=== PATIENT | female | born 2000 | race Hispanic/Latino ===

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

== ENCOUNTER 2021-01-02 18:04 | Emergency (ER) | payer BC, OTHER ==
--- OUTSIDE RECORDS SUMMARY | 2021-01-02 18:07 | XMS REPORT | Continuity of Care Document ---
:2000 Author Organization [facility] t Address [address] [place] [address] Care Team Providers Name Role Phone Marsha Solomon MD Attending Clinician Lab, Fam Pob I Attending Clinician Unavailable Cyndi Castelan Attending Clinician Shaun FLORES, S Attending Clinician Jaswant REYES, F Attending Clinician Doctor Unassigned, Name Attending Clinician Unavailable Problems This patient has no known problems. Allergies, Adverse Reactions, Alerts This patient has no known allergies or adverse reactions. Medications This patient has no known medications. Procedures This patient has no known procedures. Encounters Start End Encounter Admission Attending Care Care Encounter Source Date/Time Date/Time Type Type Clinicians Facility Department ID 2020-03-05 2020-03-05 Telemedici Marsha Solomon [facility] [id number] 08:20:04 08:35:04 ne Visit [facility] [id number] [place] [id number] Professio [phone] nal [address] 2020-02-27 2020-02-27 Telephone Lab, [facility] [id number] 00:00:00 00:00:00 Fam Pob I Health [id number] [place] [id number] Professio [phone] nal [facility] Office Building One 2020-02-25 2020-02-25 Emergency Patricia Rosales [facility] [id number] 18:17:09 21:33:00 Lacy Dunn Chanell [place] [id number] [place] [id number] [place] [id number] [id number] 2019-12-03 2019-12-03 Telemedici Marsha Solomon [facility] [id number] 08:16:16 08:46:16 ne Visit [place] [id number] [place] [id number] Professio [phone] [address] 2019-10-04 2019-10-04 Emergency Jaswant [facility] [id number] 12:12:38 14:29:00 [place] [id number] [place] [id number] [place] [id number] [id number] 2019-10-04 2019-10-04 Orders Doctor BARBARA [id number] 00:00:00 00:00:00 Only Unassigned, JESS [id number] [place] [id number] [phone] [id number] Results This patient has no known results.
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
[2021-01-02 19:15] VITALS: TEMP 98.2; O2SAT 100
[2021-01-02 19:16] VITALS: BP 120/89
[2021-01-02] MEDS ORDERED: HYDROCODONE/APAP 7.5/325 MG TAB ONE (19:22)
--- NOTE | 2021-01-02 19:25 | RAD REPORT ---
EXAM DESCRIPTION: Valery Single View01/02/2021 6:52 pm CLINICAL HISTORY: Chest pain COMPARISON: 2018 FINDINGS: The lungs appear clear of acute infiltrate. The heart is normal size IMPRESSION: No acute abnormalities displayed
== END 2021-01-02 19:09 | disposition home or self-care (01) ==
LOC: ER 18:04
DX: M54.2 Cervicalgia (principal); R51.9 Headache, unspecified; V43.52XA Car driver injured in collision with other type car in traffic accident, initial encounter
CPT/HCPCS: 70450; 71045; 72125; 99284

== ENCOUNTER 2022-03-02 12:51 | Emergency (ER) | payer BC, OTHER, SELFPAY ==
--- OUTSIDE RECORDS SUMMARY | 2022-03-02 13:45 | XMS REPORT | Continuity of Care Document ---
:[address] [facility] t Address [address] [place] [address] [place] [id number] Care Team Providers Name Role Phone YASMANY Primary Care Physician Unavailable TANYA Attending Clinician Unavailable BRIANA SOTO Attending Clinician Unavailable Tanya HENSLEY Attending Clinician Briana Soto MD Attending Clinician Nurse, Women's [facility] Attending Clinician Unavailable Doctor Unassigned, Name Attending Clinician Unavailable YASMANY Attending Clinician Unavailable Lab, Fam Pob I Attending Clinician Unavailable Chanell THOMASON Attending Clinician Unavailable Cyndi Castelan Attending Clinician Chanell Thomason MD Attending Clinician Jaswant COMPOSITE WORKER, F Attending Clinician Chanell THOMASON Admitting Clinician Unavailable Payers Payer Name Policy Type Policy Number Effective Date Expiration Date S moe L [employer] CLAIMS [id number] 2021 00:00:00 BCBS [facility] [id number] 2019 00:00:00 Problems Condition Condition Condition Status Onset Resolution Last Treating Co mments Source Name Details Category Date Date Treatment Clinician Date Obesity Obesity Disease Active Univers (BMI (BMI 7-21 ity of 30-39.9) 30-39.9) 00:00: [place] 00 Medical Branch Encounter Encounter Disease Active Uni vers for for 03-05 ity of control control 00:00: [place] pills pills 00 Medical maintenanc maintenanc Br anch e e No known No known Disease Unive rs active active ity of problems problems [facility] Allergies, Adverse Reactions, Alerts Allergy Allergy Status Severity Reaction(s) Onset Inactive Treating Comm ents Source Name Type Date Date Clinician NO KNOWN Drug Active Univers ALLERGIE Class ity of S [facility] Social History Social Habit Start Date Stop Date Quantity Comments Source Exposure to Not sure [facility] SARS-CoV-2 [facility] (event) [place] Tobacco use and 2021-04-08 2021-04-08 Never used Universit y of exposure 00:00:00 00:00:00 [facility] Alcohol intake 2021-04-08 2021-04-08 Current drinker Unive rsity of 00:00:00 00:00:00 of alcohol [facility] (finding) [place] Alcohol Comment 2021-03-25 2021-03-25 social Universit y of 00:00:00 00:00:00 [facility] Sex Assigned At 2000 2000 Universit y of 00:00:00 00:00:00 [facility] Smoking Status Start Date Stop Date Source Never smoker [facility] Medications Ordered Filled Start Stop Current Ordering Indication Dosage Frequency Signature Comments Components Source Medication Medication Date Date Medication? Clinician (SIG) Name Name fluconazole 2020- No [id number] 150mg Take 1 Univers 150 mg 04-16 tablet by ity of tablet 00:00[place] 04[place] 1 Medical dose. Branch fluconazole 2020- No [id number] 150mg Take 1 Univers 150 mg 04-16 tablet by ity of tablet 00:00: 04:[place] now for 1 Medical dose. Branch medroxyPROG 2020- No [id number] 150mg Univers ESTERone 04-08 ity of (DEPO-PROVE 17:15: 16:12 [facility]) syringe 00 :00 Medical 150 mg Branch medroxyPROG 2020- No [id number] 150mg 150 mg, Univers ESTERone 04-08 Intramuscu ity of (DEPO-PROVE 17:15: 16:12 lar, ONCE, [facility]) syringe 00 :00 1 dose, Medic al 150 mg 04/08/21 Branch at 1215, Routine levonorgest 2020-0 Yes 1{tbl} Take 1 Un star rel-ethinyl 7-01 tablet by ity of estradiol 00:00: mouth [place] 0.1-20 00 daily. Medical mg-mcg per Branch tablet levonorgest 2020-0 2020- No 1{tbl} Take 1 U nivers rel-ethinyl 7-09 11-21 tablet by it y of estradiol 00:00: 00:00 mouth [place] 0.1-20 00 :00 daily. Medical mg-mcg per Branch tablet levonorgest 2020-0 2020- No 1{tbl} Take 1 U nivers rel-ethinyl 7-09 11-21 tablet by it y of estradiol 00:00: 00:00 mouth [place] 0.1-20 00 :00 daily. Medical mg-mcg per Branch tablet benzonatate 2020-0 Yes [id number] 200mg Take 1 Univers 200 mg 6-22 capsule by ity of capsule 00:00: mouth 3 [place] 00 (three) Medical times Branch daily as needed for Cough. benzonatate 2020-0 Yes [id number] 200mg Take 1 Univers 200 mg 6-22 capsule by ity of capsule 00:00: mouth 3 [place] 00 (three) Medical times Branch daily as needed for Cough. benzonatate 2020-0 2020- No [id number] 200mg Take 1 Univers 200 mg 6-22 07- capsule by ity of capsule 00:00: 00:00 mouth 3 [place] 00 :00 (three) Medical times Branch daily as needed for Cough. levonorgest 2020-0 Yes [id number] 1{tbl} Take 1 Univers rel-ethinyl 3-30 tablet by ity of estradiol 00:00: mouth [place] 0.1-20 00 daily. Medical mg-mcg per Branch tablet levonorgest 2020-0 Yes [id number] 1{tbl} Take 1 Univers rel-ethinyl 3-30 tablet by ity of estradiol 00:00: mouth [place] 0.1-20 00 daily. Medical mg-mcg per Branch tablet levonorgest 2020-0 Yes [id number] 1{tbl} Take 1 Univers rel-ethinyl 3-30 tablet by ity of estradiol 00:00: mouth [place] 0.1-20 00 daily. Medical mg-mcg per Branch tablet levonorgest 2020- No [id number] 1{tbl} Take 1 Univers rel-ethinyl 3-30 07- tablet by it y of estradiol 00:00: 00:00 mouth [place] 0.1-20 00 :00 daily. Medical mg-mcg per Branch tablet LOESTRIN Yes [id number] 1{tbl} Take 1 Univers (LOESTRIN 2-28 tablet by ity o f 09/24) 1 00:00: mouth [place] mg-20 mcg 00 daily. Medical (21)/75 mg Branch (7) tablet LOESTRIN Yes [id number] 1{tbl} Take 1 Univers (LOESTRIN 2-28 tablet by ity o f 09/24) 1 00:00: mouth [place] mg-20 mcg 00 daily. Medical (21)/75 mg Branch (7) tablet LOESTRIN 2019- No [id number] 1{tbl} Take 1 Univers (LOESTRIN 2-28 03-30 tablet by ity [facility] 09/24) 1 00:00: 00:00 mouth [place] mg-20 mcg 00 :00 daily. Medical (21)/75 mg Branch (7) tablet No known No Univers medications [facility] Vital Signs Vital Name Observation Time Observation Value Comments Source Systolic blood 2021-04-16 14:34:00 107 mm[Hg] [facility] Diastolic blood 2021-04-16 14:34:00 74 mm[Hg] [facility] Heart rate 2021-04-16 14:34:00 72 /min [facility] Body temperature 2021-04-16 14:34:00 37.11 Stephanie [facility] Respiratory rate 2021-04-16 14:34:00 18 /min [facility] Body weight 2021-04-16 14:34:00 81.647 kg [facility] BMI 2021-04-16 14:34:00 30.90 kg/m2 [facility] Systolic blood 2021-04-08 16:02:00 122 mm[Hg] [facility] Diastolic blood 2021-04-08 16:02:00 75 mm[Hg] Unive rsity of pressure [place] [facility] Heart rate 2021-04-08 16:02:00 80 /min [facility]i ty [facility] [place] [facility] Body temperature 2021-04-08 16:02:00 36.44 Stephanie Univ ers[facility] [place] [facility] Respiratory rate 2021-04-08 16:02:00 18 /min Univ ersity [facility] [place] [facility] Body height 2021-04-08 16:02:00 162.6 cm [facility] [place] [facility] Body weight 2021-04-08 16:02:00 83.462 kg [facility] [place] [facility] BMI 2021-04-08 16:02:00 31.58 kg/m2 Universi ty [facility] [place] [facility] Systolic blood 2021-03-25 16:27:00 119 mm[Hg] Univer sity of pressure [place] [facility] Diastolic blood 2021-03-25 16:27:00 79 mm[Hg] Unive rsity of pressure [place] [facility] Heart rate 2021-03-25 16:27:00 76 /min [facility]i ty [facility] [place] [facility] Body temperature 2021-03-25 16:27:00 36.89 Stephanie Univ [facility] [place] [facility] Respiratory rate 2021-03-25 16:27:00 18 /min Univ ers[facility] [place] [facility] Body height 2021-03-25 16:27:00 162.6 cm [facility] [place] [facility] Body weight 2021-03-25 16:27:00 81.647 kg [facility]i [facility] [place] [facility] BMI 2021-03-25 16:27:00 30.90 kg/m2 [facility] [place] [facility] Body weight 2020 01:00:00 80.287 kg [facility]i [facility] [place] [facility] Systolic blood 2020-02-25 22:43:00 140 mm[Hg] Univer sity of pressure [place] [facility] Diastolic blood 2020-02-25 22:43:00 86 mm[Hg] Unive rsity of pressure [place] [facility] Heart rate 2020-02-25 22:43:00 90 /min [facility]i ty [facility] [place] [facility] Body temperature 2020-02-25 22:43:00 36.94 Stephanie Univ [facility] [place] [facility] Respiratory rate 2020-02-25 22:43:00 18 /min Univ [facility] [place] [facility] Oxygen saturation in 2020-02-25 22:43:00 100 /min University of Arterial blood by [facility] Pulse oximetry Branch Body weight 2020 01:00:00 80.287 kg [facility]i ty [facility] [place] [facility] Systolic blood 2020-02-25 22:43:00 140 mm[Hg] Univer sity of pressure [place] [facility] Diastolic blood 2020-02-25 22:43:00 86 mm[Hg] Unive rsity of pressure [place] [facility] Heart rate 2020-02-25 22:43:00 90 /min [facility]i ty [facility] [place] [facility] Body temperature 2020-02-25 22:43:00 36.94 Stephanie Univ [facility] [place] [facility] Respiratory rate 2020-02-25 22:43:00 18 /min Univ [facility] [place] [facility] Oxygen saturation in 2020-02-25 22:43:00 100 /min University of Arterial blood by [facility] Pulse oximetry Branch Systolic blood 2019-10-04 18:04:00 146 mm[Hg] Univer sity of pressure [place] [facility] Diastolic blood 2019-10-04 18:04:00 96 mm[Hg] Unive rsity of pressure [place] [facility] Heart rate 2019-10-04 18:04:00 89 /min [facility]i [facility] [place] [facility] Body temperature 2019-10-04 18:04:00 37.33 Stephanie Univ [facility] [place] [facility] Respiratory rate 2019-10-04 18:04:00 18 /min Univ [facility] [place] [facility] Body weight 2019-10-04 18:04:00 80.241 kg [facility]i ty [facility] [place] [facility] Oxygen saturation in 2019-10-04 18:04:00 100 /min University of Arterial blood by [facility] Pulse oximetry Branch Systolic blood 2019-10-04 18:04:00 146 mm[Hg] Univer sity of pressure [place] [facility] Diastolic blood 2019-10-04 18:04:00 96 mm[Hg] Unive rsity of pressure [place] [facility] Heart rate 2019-10-04 18:04:00 89 /min [facility]i ty [facility] [place] [facility] Body temperature 2019-10-04 18:04:00 37.33 Stephanie Univ [facility] [place] [facility] Respiratory rate 2019-10-04 18:04:00 18 /min Univ [facility] [place] [facility] Body weight 2019-10-04 18:04:00 80.241 kg [facility] Oxygen saturation in 2019-10-04 18:04:00 100 /min [facility] Arterial blood by [facility] Pulse oximetry Branch Procedures Procedure Date / Time Performing Clinician Source Performed CONSENT FOR 2021-04-08 05:01:00 Doctor Unassigned, [facility] POCT TEST 2021-04-08 00:00:00 Antoinette Crews [facility] XR CHEST 1 VW COVID 2020 01:18:54 Yonatan Thomason [facility] POCT TEST 2020 01:11:00 Yonatan Thomason [facility] CONSENT/REFUSAL FOR 2020-02-25 22:25:29 Doctor Unassigned, No Un [facility] [place] DIAGNOSIS AND TREATMENT [facility] NOTICE OF PRIVACY 2019-10-04 17:48:16 Doctor Unassigned, No Univ [facility] [place] PRACTICES [facility] CONSENT/REFUSAL FOR 2019-10-04 17:48:03 Doctor Unassigned, No Un [facility] [place] DIAGNOSIS AND TREATMENT [facility] Encounters Start End Encounter Admission Attending Care Care Encounter Source Date/Time Date/Time Type Type Clinicians Facility Department ID 2022-03-25 2022-03-25 Outpatient R TANYA [facility] [id number] Univers 10:00:00 10:00:00 [id number] 2021-09-09 Outpatient [facility] [id number] Univers 13:45:00 13:45:00 [id number] [facility] 2021-07-03 2021-07-03 Outpatient R [facility] [id number] Univers 14:30:00 14:30:00 [id number] ity [facility] 2021-07-03 2021-07-03 Outpatient R [facility] [id number] Univers 14:30:00 14:30:00 ity [facility] 2021-04-16 2021-04-16 Outpatient R ALMA DELIA SOTO [facility] [id number] Univers 09:30:00 09:59:10 ity [facility] 2021-04-16 2021-04-16 Office GiorgiocorwinBettycy [facility] [id number] Univers 09:25:28 09:59:10 Visit Alma Delia Soto Briana [place] [id number] ity [place] [id number] Profess[place] [phone] Ca dical nal [address] [place] [address] 2021-04-16 2021-04-16 Outpatient R SOTO ALMA DELIA [facility] [id number] Univers 09:30:00 09:30:00 [id number] ity [facility] 2021-04-08 2021-04-08 Nurse Nurse, [facility] [id number] Univers 10:37:38 11:11:49 Visit Antoinette Cerws [id number] ity [facility] [id number] [phone] Ca dical nal [address] [place] [address] 2021-04-08 2021-04-08 Outpatient R [facility] [id number] Univers 10:30:00 10:30:00 [id number] ity [facility] 2021-04-08 2021-04-08 Outpatient R [facility] [id number] Univers 10:30:00 10:30:00 ity [facility] 2021-04-08 2021-04-08 Orders Doctor JIMENEZ [id number] Univers 00:00:00 00:00:00 Only Unassigned, JESS [id number] ity of Community [facility] [id number] Art as [phone] [address] 2021-04-07 2021-04-07 [facility] [id number] Univers 00:00:00 00:00:00 ANTOINETTE [id number] ity [facility] 2021-04-07 2021-04-07 [facility] [id number] Univers 00:00:00 00:00:00 ANTOINETTE ity [facility] 2021-03-25 2021-03-25 [facility] [id number] Univers 10:50:28 11:20:28 Visit Antoinette [place] [id number] i ty of [place] [id number] Joanna Galvan [phone] Ca dical nal [address] [facility] 2021-03-25 2021-03-25 Outpatient TANYA [facility] [id number] Univers 10:45:00 10:45:00 ANTOINETTE [id number] [facility] 2021-03-25 2021-03-25 Outpatient Sen CREWS [facility] [id number] Univers 10:45:00 10:45:00 ANTOINETTE [facility] 2021-03-24 2021-03-24 Outpatient Sen CREWS [facility] [id number] Univers 15:00:00 15:00:00 ANTOINETTE [id number] [facility] 2021-03-24 2021-03-24 Outpatient Sen CREWS [facility] [id number] Univers 15:00:00 15:00:00 ANTOINETTE [facility] 2021-03-11 2021-03-11 Outpatient TANYA [facility] [id number] Univers 13:00:00 13:00:00 ANTOINETTE [id number] [facility] 2021-03-09 2021-03-09 Outpatient Sen CREWS [facility] [id number] Univers 10:30:00 10:30:00 ANTOINETTE [id number] [facility] 2021-03-06 2021-03-06 Outpatient Sen CREWS [facility] [id number] Univers 08:00:00 08:00:00 ANTOINETTE [id number] [facility] 2021-03-06 2021-03-06 Outpatient Sen CREWS [facility] [id number] Univers 08:00:00 08:00:00 ANTOINETTE [facility] 2021-03-05 2021-03-05 Outpatient Sen CREWS [facility] [id number] Univers 08:30:00 08:30:00 ANTOINETTE [id number] ity of [facility] 2021-03-05 2021-03-05 Outpatient R TANYA [facility] [id number] Univers 08:30:00 08:30:00 ANTOINETTE ity of [facility] 2020-03-27 2020-03-27 Outpatient R YASMANY [facility] [id number] Univers 13:15:00 13:15:00 MIKE [id number] ity of [facility] 2020-03-27 2020-03-27 Outpatient R YASMANY [facility] [id number] Univers 13:15:00 13:15:00 MIKE ity of [facility] 2020-03-25 2020-03-25 Outpatient R YASMANY [facility] [id number] Univers 09:15:00 09:15:00 MIKE [id number] ity [facility] 2020-03-17 2020-03-17 Outpatient R YASMANY [facility] [id number] Univers 11:15:00 11:15:00 MIKE [id number] ity of [facility] 2020-03-05 2020-03-05 [id number] Univers 09:45:00 09:45:00 ity of [facility] 2020-03-05 2020-03-05 Outpatient R ALMA DELIA SOTO [facility] [id number] Univers 09:45:00 09:45:00 ity of [facility] 2020-03-05 2020-03-05 [facility] [id number] Univers 08:20:04 08:35:04 ne Visit Cam [place] [id number] ity [id number] [phone] Ca dical [address] 2020-03-05 2020-03-05 Telemedici Alma Delia Soto [facility] [id number] 08:20:04 08:35:04 ne Visit Cam [place] [id number] [place] [id number] Professio [phone] [address] 2020-02-27 2020-02-27 Outpatient R [facility] [id number] Univers 13:00:00 13:00:00 [id number] ity of [facility] 2020-02-27 2020-02-27 Outpatient R [facility] [id number] Univers 13:00:00 13:00:00 ity of [facility] 2020-02-27 2020-02-27 Telephone Lab, [facility] 1.2.840.114 [id number] Univers 00:00:00 00:00:00 Fam Pob I Health [id number] ity of [place] [id number] Art as Professio [phone] Ca dical [address] 2020-02-27 2020-02-27 Telephone Lab, [facility] 1.2.840.114 [id number] 00:00:00 00:00:00 Fam Pob I Health [id number] [place] [id number] Professio [phone] nal [facility] [address] 2020-02-25 2020-02-25 Emergency X KATELIN [facility] ERT [id number] Univers 18:17:09 21:33:00 YONATAN itmarito [facility] 2020-02-25 2020-02-25 Emergency Patricia Rosales [facility] 1.2.840. [id number] Univers 18:17:09 21:33:00 Yonatan Thomason [place] [id number] ity [id number] [phone] [address] 2020-02-25 2020-02-25 Emergency Patricia Rosales [facility] 1.2.840. [id number] 18:17:09 21:33:00 Yonatan Thomason [place] [id number] [place] [id number] [place] [phone] [facility] 2019-12-03 2019-12-03 Telemedici Alma Delia Soto [facility] [id number] Univers 08:16:16 08:46:16 ne Visit Cam [place] [id number] ity [id number] [facility] [phone] Me dical [address] 2019-12-03 2019-12-03 [facility]ici [facility] [id number] 08:16:16 08:46:16 ne Visit Briana [place] [id number] [place] [id number] [facility] [phone] [address] 2019-12-03 2019-12-03 Outpatient R ALMA DELIA SOTO [facility] [id number] [facility] 08:30:00 08:30:00 ity of [facility] 2019-10-04 2019-10-04 Emergency [facility] [id number] [facility] 12:12:38 14:29:00 Todd [place] [id number] ity [place] [id number] [phone] [address] 2019-10-04 2019-10-04 Emergency [facility] 1.2.840.114 [id number] 12:12:38 14:29:00 Todd [place] [id number] [place] [id number] [place] [phone] [facility] 2019-10-04 2019-10-04 Orders Doctor BARBARA 1.2.840.114 [id number] Univers 00:00:00 00:00:00 Only Unassigned, JESS [id number] ity of Community [facility] [id number] Art as [phone] [facility] 009 [place] 2019-10-04 2019-10-04 Orders Doctor BARBARA 1.2.840.114 [id number] 00:00:00 00:00:00 Only Unassigned, JESS [id number] Community [facility] [id number] [phone] [id number] Results Test Description Test Time Test Comments Results Result Comments Source POCT TEST 2021-04-08 16:15:00 Test Item Value Reference Range Interpretation Comme nts POCT PREG (test code = 1605) Negative On board controls acceptable with C Line (test code = 3574) Yes POCT PREG LOT # (test code = 3575) POCT PREG TEST DATE (test code = 3576) [id number]:11:00 Test Item Value Reference Range Interpretation Comments POCT PREG (test code = 1605) Negative On board controls acceptable with Present C Line (test code = 3574) POCT PREG LOT # (test code = 3575) [id number] POCT PREG TEST DATE (test 06/04/2021 code = 3576) Lab Interpretation (test code = Normal 43448-1) [facility]
[2022-03-02 14:55] LABS: Absolute Lymphocytes (CBC) 1.3 K/uL (0.7-4.9); Hematocrit 37.8 % (36.0-45.0); MPV 8.8 fL (7.6-11.3); RBC Red Blood Cell Count 4.72 M/uL (3.86-4.86)
[2022-03-02 15:11] LABS: Albumin 4.1 g/dL (3.4-5.0); Bilirubin Direct 0.1 mg/dL (0-0.2); Bilirubin Total 0.4 mg/dL (0.2-1.0); Potassium 3.7 mmol/L (3.5-5.1); Protein, Total 7.5 g/dL (6.4-8.2)
[2022-03-02 15:36] LABS: Urine Blood Negative (Negative); Urine Glucose Negative (Negative); Urine Protein Negative (Negative)
--- NOTE | 2022-03-02 15:55 | EDPHYS ---
Physician Documentation [facility] Name: Jessica Resendez Age: 22 yrs Sex: Female : 2000 Arrival Date: 03/02/2022 Time: 12:58 Bed 12 Private MD: ED Physician Mahad Boogie HPI: 03/02 13:13 This 22 yrs old Female presents to ER via Ambulatory with complaints of Needle cp Stick Exposure. 13:13 Type of Exposure: needlestick, a hollow needle. Area of exposure: bowers side distal cp phalanx left index finger. 13:13 Context: The problem was sustained in the [facility] lab. Onset: The cp symptoms/episode began/occurred yesterday. Symptoms: The patient does not have any acute complaints. 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 Historical: - Allergies: 13:12 No Known Allergies; ss - Home Meds: 13:12 topiramate oral [Active]; ss - PMHx: 13:12 None; ss - Immunization history:: Adult Immunizations up to date. - Social history:: Smoking status: Patient denies any tobacco usage or history of. ROS: 13:15 Skin: Positive for puncture, of the bowers side distal phalanx left index finger. cp 13:15 Constitutional: Negative for fever. cp 13:15 Respiratory: Negative for cough, shortness of breath, wheezing. 13:15 Abdomen/GI: Negative for abdominal pain, nausea, vomiting, and diarrhea. 13:15 MS/extremity: Positive for tenderness, of the distal phalanx left index finger, Negative for decreased range of motion, erythema, paresthesias, swelling. 13:15 All other systems are negative. Exam: 13:20 Constitutional: The patient appears in no acute distress, alert, awake, comfortable, cp non-toxic, well developed, well nourished. 13:20 Head/Face: Normocephalic, atraumatic. cp 13:20 Eyes: Periorbital structures: appear normal, Conjunctiva: normal, no exudate, no cp injection, Sclera: no appreciated abnormality, Lids and lashes: appear normal, bilaterally. 13:20 ENT: External ear(s): are unremarkable, Nose: is normal, Mouth: Lips: moist, Oral mucosa: moist, Posterior pharynx: Airway: no evidence of obstruction, patent. 13:20 Chest/axilla: Inspection: normal. 13:20 Cardiovascular: Rate: normal, Rhythm: regular. 13:20 Respiratory: the patient does not display signs of respiratory distress, Respirations: normal, no use of accessory muscles, no retractions, labored breathing, is not present, Breath sounds: are clear throughout, no decreased breath sounds, no stridor, no wheezing. 13:20 Abdomen/GI: Exam negative for discomfort, distension, guarding, Inspection: abdomen appears normal. 13:20 Skin: cellulitis, is not appreciated, injury, that can be described as clean, without bleeding, tender to palpation, puncture(s), that are superficial, of the bowers side distal phalanx left index finger. Vital Signs: 13:08 Pulse 97; Resp 16; Temp 98; Pulse Ox 100% ; Weight 79.38 kg; Height 5 ft. 4 in. (162.56 ss cm); Pain 0/10; 13:13 BP 141 / 94; ss 13:08 Body Mass Index 30.04 (79.38 kg, 162.56 cm) ss MDM: 13:39 Patient medically screened. 15:51 Data reviewed: vital signs, nurses notes, lab test result(s), and as a result, I will cp discharge patient. 15:54 Counseling: I had a detailed discussion with the patient and/or guardian regarding: the cp historical points, exam findings, and any diagnostic results supporting the discharge/admit diagnosis, lab results, the need for outpatient follow up, a family practitioner, to return to the emergency department if symptoms worsen or persist or if there are any questions or concerns that arise at home. 03/02 13:21 Order name: CBC with Diff; Complete Time: 15:04 03/02 15:45 Interpretation: MCH 26.9; Reviewed. 03/02 13:21 Order name: BMP; Complete Time: 15:44 03/02 15:44 Interpretation: Normal except: CL 108. 03/02 13:21 Order name: LFT's; Complete Time: 15:44 03/02 15:44 Interpretation: Normal except: AST 13. 03/02 13:59 Order name: Hepatitis Panel,Acute EDDE 03/02 13:59 Order name: HIV (1; Complete Time: 15:44 EDDE 03/02 13:21 Order name: Urine Dipstick-Ancillary (obtain specimen); Complete Time: 15:30 cp 03/02 13:21 Order name: Urine Test (obtain specimen); Complete Time: 15:30 cp 03/02 15:36 Order name: Urine Dipstick-Ancillary; Complete Time: 15:44 EDDE 03/02 15:39 Order name: Urine --Ancillary (enter results) [id number] Administered Medications: No medications were administered Disposition: 16:21 Co-signature as Attending Physician, Mahad Boogie MD. rn Disposition Summary: 03/02/22 15:54 Discharge Ordered Location: Home cp Problem: new cp Symptoms: have improved cp Condition: Stable cp Diagnosis - Contact with contaminated hypodermic needle, initial encounter cp - Puncture wound without foreign body of left index finger without damage to nail, cp initial encounter Followup: cp - With: Private Physician - When: 2 - 3 days - Reason: Recheck today's complaints Discharge Instructions: - Discharge Summary Sheet cp - Needlestick and Sharps Injury cp - Puncture Wound cp Forms: - Medication Reconciliation Form cp - Thank You Letter cp - Antibiotic Education cp - Prescription Opioid Use cp Prescriptions: - Truvada 200-300 mg Oral tablet - take 1 tablet by ORAL route once daily; 28 tablet; Refills: 0, Product cp Selection Permitted - Isentress 400 mg Oral tablet - take 1 tablet by ORAL route 2 times per day; 56 tablet; Refills: 0, Product cp Selection Permitted Signatures: Dispatcher [employer] [facility] Mahad Boogie MD MD rn Smirch, Shelby, RN RN ss Page, Corey, PA PA cp Corrections: (The following items were deleted from the chart) 13:12 13:12 Home Meds: None; ss 15:45 15:04 Reviewed. cp cp
--- NOTE | 2022-03-02 15:55 | ER ---
Nurse's Notes [facility] Name: Jessica Resendez Age: 22 yrs Sex: Female : 2000 Arrival Date: 03/02/2022 Time: 12:58 Bed 12 Private MD: Diagnosis: Contact with contaminated hypodermic needle, initial encounter;Puncture wound without foreign body of left index finger without damage to nail, initial encounter Presentation: 03/02 13:08 Chief complaint: Patient states: Needle stick exposure yesterday. PT doesn't remember ss when or with which patient, but was sent by occupational health to blood work and a urine sample. Coronavirus screen: Client denies travel out of the [place] in the last 14 days. Ebola Screen: Patient denies exposure to infectious person. Patient denies travel to an Ebola-affected area in the 21 days before illness onset. Initial Sepsis Screen: Does the patient meet any 2 criteria? No. Patient's initial sepsis screen is negative. Does the patient have a suspected source of infection? No. Patient's initial sepsis screen is negative. Risk Assessment: Do you want to hurt yourself or someone else? Patient reports no desire to harm self or others. Onset of symptoms is unknown. 13:08 Method Of Arrival: Ambulatory ss 13:08 Acuity: ENOC 3 ss Historical: - Allergies: 13:12 No Known Allergies; ss - Home Meds: 13:12 topiramate oral [Active]; ss - PMHx: 13:12 None; ss - Immunization history:: Adult Immunizations up to date. - Social history:: Smoking status: Patient denies any tobacco usage or history of. Screenin:05 Abuse screen: Denies threats or abuse. Denies injuries from another. Nutritional ss screening: No deficits noted. Tuberculosis screening: Never had TB. Fall Risk None identified. Assessment: 13:08 General: Appears in no apparent distress. comfortable, Behavior is calm, cooperative. ss Pain: Denies pain. Neuro: Wolf Agitation-Sedation Scale (RASS): 0 - Alert and Calm Level of Consciousness is awake, alert, obeys commands, Oriented to person, place, time, situation. Respiratory: Airway is patent Respiratory effort is even, unlabored, Respiratory pattern is regular, symmetrical. Derm: Skin is intact, is healthy with good turgor, Skin is pink, warm \T\ dry. normal. Musculoskeletal: Range of motion: intact in all extremities. 16:05 Reassessment: Patient appears in no apparent distress at this time. Patient and/or ss family updated on plan of care and expected duration. Pain level reassessed. Patient is alert, oriented x 3, equal unlabored respirations, skin warm/dry/pink. Vital Signs: 13:08 Pulse 97; Resp 16; Temp 98; Pulse Ox 100% ; Weight 79.38 kg; Height 5 ft. 4 in. (162.56 ss cm); Pain 0/10; 13:13 BP 141 / 94; ss 13:08 Body Mass Index 30.04 (79.38 kg, 162.56 cm) ED Course: 12:58 Patient arrived in ED. rg4 13:08 Mahad Boogie MD is Attending Physician. rn 13:12 Triage completed. ss 13:12 Arm band placed on left wrist. ss 13:13 Jc Moe PA is PHCP. cp 13:18 Mahad Boogie MD is Attending Physician. cp 14:35 Initial lab(s) drawn, by mi, sent to lab. Inserted saline lock: 20 gauge in right dh3 antecubital area, using aseptic technique. Blood collected. 15:30 Talya Knowles RN is Primary Nurse. ss 16:05 Patient has correct armband on for positive identification. Bed in low position. Call ss light in reach. 16:05 No provider procedures requiring assistance completed. IV discontinued, intact, ss bleeding controlled, No redness/swelling at site. Pressure dressing applied. Administered Medications: No medications were administered Medication: 16:05 VIS not applicable for this client. Outcome: 15:54 Discharge ordered by . cp 16:05 Discharged to home ambulatory. ss 16:05 Condition: good 16:05 Discharge instructions given to patient, Instructed on discharge instructions, follow up and referral plans. medication usage, Demonstrated understanding of instructions, follow-up care, medications, Prescriptions given X 2. 16:06 Patient left the ED. ss Signatures: Mahad Boogie MD MD rn Smirch, Shelby, RN RN Jc Moe PA PA cp Garcia, Rubi 4 SlaughterKatie manjarrez counts include 234 beds at the [facility] Corrections: (The following items were deleted from the chart) 13:12 13:12 Home Meds: None; ss ss
[2022-03-02 16:45] VITALS: TEMP 98; O2SAT 100
[2022-03-02 16:46] VITALS: BP 141/94
== END 2022-03-02 16:06 | disposition home or self-care (01) ==
LOC: ER 12:51
DX: S61.231A Puncture wound without foreign body of left index finger without damage to nail, initial encounter (principal); W46.1XXA Contact with contaminated hypodermic needle, initial encounter
CPT/HCPCS: 85025; 80048; 36415; 81025; 80076; 81003; 80074; G0433

== ENCOUNTER 2023-06-08 18:03 | Emergency (ER) | payer BC, OTHER ==
--- OUTSIDE RECORDS SUMMARY | 2023-06-08 18:07 | XMS REPORT | Continuity of Care Document ---
:2000 Author Organization [facility] t Address [address] [facility] [address] [place] [address] Care Team Providers Name Role Phone Mike Jade MD Primary Care Physician Scarlet DANIELSON, Stephani Montemayor Attending Clinician Fredi FLORES, [place] Attending Clinician Chance FLORES, Kellie Morrison Attending Clinician [phone] Jian Hernandez Attending Clinician JIAN ALEXIS Attending Clinician Unavailable Antoinette Martínez PA-C Attending Clinician ALMA DELIA SOTO Attending Clinician Unavailable Alma Delia Soto MD Attending Clinician Nurse, [facility] Attending Clinician Unavailable Doctor Unassigned, [place] Attending Clinician Unavailable ANTOINETTE MARTÍNEZ Attending Clinician Unavailable MIKE JADE Attending Clinician Unavailable Lab, [facility] Fam Pob I Attending Clinician Unavailable Patricia Castelan Attending Clinician Yonatan Dunn MD Attending Clinician YONATAN DUNN Attending Clinician Unavailable Todd Chapin Attending Clinician YONATAN DUNN Admitting Clinician Unavailable Payers Payer Name Policy Type Policy Number Effective Date Expiration Date Chanell RAI GBRP CLAIMS [id number] 2021 00:00:00 Problems Condition Condition Condition Status Onset Resolution Last Treating Co mments Source Name Details Category Date Date Treatment Clinician Date Obesity Obesity Disease Active Univers (BMI (BMI 7-21 ity of 30-39.9) 30-39.9) 00:00: [address] Encounter Encounter Disease Active Uni vers for for 03-05 ity of control control 00:00: [place] pills pills 00 Medical maintenanc maintenanc Br anch e e No known No known Disease Unive rs active active ity of problems problems [facility] Allergies, Adverse Reactions, Alerts Allergy Allergy Status Severity Reaction(s) Onset Inactive Treating Comm ents Source Name Type Date Date Clinician NO KNOWN Drug Active Univers ALLERGIE Class ity of S [facility] Family History Family Member Diagnosis Comments Start Date Stop Date Source Maternal grandmother Diabetes [facility] Natural mother Hypertension [facility] Paternal grandfather Diabetes [facility] Natural father Hypertension [facility] Social History Social Habit Start Date Stop Date Quantity Comments Source History SDOH University o f Alcohol Frequency [facility] edical [place] History SDOH University o f Alcohol Std Drinks [facility] History [facility] University o f Alcohol Binge [facility] [place] Sexual [facility] Alcohol intake 2023-03-11 2023-03-11 Current drinker [facility] dist 00:00:00 00:00:00 of alcohol Hospital (finding) History of Social 2023-03-11 2023-03-[address] function 00:00:00 00:00:00 Hospital Tobacco use and 2022-11-16 2022-11-16 Smokeless Religion exposure 00:00:00 00:00:00 tobacco non-user Hospital Alcohol Comment 2022-11-16 2022-11-16 1-2 a month Methodis t 00:00:00 00:00:00 Hospital Exposure to 2022-02-23 2022-03-05 Not sure University of SARS-CoV-2 (event) 00:00:00 10:57:00 [facility] Sex Assigned At 2000 2000 F Religion 00:00:00 00:00:00 Hospital Smoking Status Start Date Stop Date Source Never smoked tobacco [facility] Medications Ordered Filled Start Stop Current Ordering Indication Dosage Frequency Signature Comments Components Source Medication Medication Date Date Medication? Clinician (SIG) Name Name lopezhexlesly Yes [id number] 15mL Swish and Univers ne 0.12 % 03-05 spit out ity of mouthwash 00:00: 15 mL 2 [place] 00 (two) Medical times Branch daily. predniSONE 2021- No [id number] 40mg Take 2 U nivers 20 mg 03-05 tablets by ity of tablet 00:00: 04:59 mouth [place] 00 :00 daily for Medical 5 days. Branch fluconazole 2020- No [id number] 150mg Take 1 Univers 150 mg 04-16 tablet by ity of tablet 00:00: 04:59 [place] 00 :[place] now for 1 Medical dose. [place] fluconazole 2020- No [id number] 150mg Take 1 Univers 150 mg 04-16 tablet by ity of tablet 00:00: 04:59 [place] 00 :[place] now for 1 Medical dose. [place] medroxyPROG 2020- No [id number] 150mg Univers ESTERone 04-08 ity of (DEPO-PROVE 17:15: 16:12 [facility]) syringe 00 :00 Medical 150 mg [place] medroxyPROG 2020- No [id number] 150mg 150 mg, Univers ESTERone 04-08 Intramuscu ity of (DEPO-PROVE 17:15: 16:12 lar, ONCE, [place] RA) syringe 00 :00 1 dose, Medic al 150 mg 04/08/21 Branch at 1215, Routine levonorgest Yes 1{tbl} Take 1 Un star rel-ethinyl - tablet by ity of estradiol 00:00: mouth [place] 0.1-20 00 daily. Medical mg-mcg per Branch tablet levonorgest 2020- No 1{tbl} Take 1 U nivers rel-ethinyl 03-05 tablet by it y of estradiol 00:00: 00:00 mouth [place] 0.1-20 00 :00 daily. Medical mg-mcg per Branch tablet levonorgest 2020-0 2020- No 1{tbl} Take 1 U nivers rel-ethinyl 7- 07-21 tablet by it y of estradiol 00:00: 00:00 mouth [place] 0.1-20 00 :00 daily. Medical mg-mcg per Branch tablet benzonatate 2020-0 Yes [id number] 200mg Take 1 Univers 200 mg 6-22 capsule by ity of capsule 00:00: mouth 3 [place] 00 (three) Medical times Branch daily as needed for Cough. benzonatate 2020-0 Yes [id number] 200mg Take 1 Univers 200 mg 6-22 capsule by ity of capsule 00:00: mouth 3 [place] 00 (three) Medical times Branch daily as needed for Cough. benzonatate 2019-0 2020- No [id number] 200mg Take 1 Univers 200 mg 6-22 07- capsule by ity of capsule 00:00: 00:00 mouth 3 [place] 00 :00 (three) Medical times Branch daily as needed for Cough. levonorgest 2020-0 Yes [id number] 1{tbl} Take 1 Univers rel-ethinyl 3-30 tablet by ity of estradiol 00:00: mouth [place] 0.1-20 00 daily. Medical mg-mcg per Branch tablet levonorgest 2020-0 Yes [id number] 1{tbl} Take 1 Univers rel-ethinyl 3-30 tablet by ity of estradiol 00:00: mouth [place] 0.1-20 00 daily. Medical mg-mcg per Branch tablet levonorgest 2020-0 Yes [id number] 1{tbl} Take 1 Univers rel-ethinyl 3-30 tablet by ity of estradiol 00:00: mouth [place] 0.1-20 00 daily. Medical mg-mcg per Branch tablet levonorgest 2020-0 2020- No [id number] 1{tbl} Take 1 Univers rel-ethinyl 3-30 07-01 tablet by it y of estradiol 00:00: 00:00 mouth [place] 0.1-20 00 :00 daily. Medical mg-mcg per Branch tablet LOESTRIN FE 2018-0 Yes [id number] 1{tbl} Take 1 Univers (LOESTRIN 2-28 tablet by ity o f FE 09/24) 1 00:00: mouth [place] mg-20 mcg 00 daily. Medical (21)/75 mg Branch (7) tablet LOESTRIN Yes [id number] 1{tbl} Take 1 Univers (LOESTRIN 2-28 tablet by ity o f 09/24) 1 00:00: mouth [place] mg-20 mcg 00 daily. Medical (21)/75 mg Branch (7) tablet LOESTRIN 2020- No [id number] 1{tbl} Take 1 Univers (LOESTRIN 2-28 03-30 tablet by ity [facility] 09/24) 1 00:00: 00:00 mouth [place] mg-20 mcg 00 :00 daily. Medical (21)/75 mg Branch (7) tablet No known No Univers medications [facility] Vital Signs Vital Name Observation Time Observation Value Comments Source Systolic blood 2022-03-05 16:09:00 130 mm[Hg] [facility] Diastolic blood 2022-03-05 16:09:00 86 mm[Hg] Unive [facility] Heart rate 2022-03-05 16:09:00 109 /min [facility] Body temperature 2022-03-05 16:09:00 37 Stephanie [facility] Respiratory rate 2022-03-05 16:09:00 16 /min [facility] Body height 2022-03-05 16:09:00 162.6 cm [facility] Body weight 2022-03-05 16:09:00 83.371 kg [facility] BMI 2022-03-05 16:09:00 31.55 kg/m2 [facility] Oxygen saturation in 2022-03-05 16:09:00 99 /min [facility] Arterial blood by [facility] Pulse oximetry Branch Systolic blood 2021-04-16 14:34:00 107 mm[Hg] [facility] Diastolic blood 2021-04-16 14:34:00 74 mm[Hg] [facility] 2021-04-16 14:34:00 72 /min [facility] Body temperature 2021-04-16 14:34:00 37.11 Stephanie [facility] Respiratory rate 2021-04-16 14:34:00 18 /min Univ [facility] [place] [facility] Body weight 2021-04-16 14:34:00 81.647 kg [facility] [place] [facility] BMI 2021-04-16 14:34:00 30.90 kg/m2 [facility] [place] [facility] Systolic blood 2021-04-08 16:02:00 122 mm[Hg] Univer sity of pressure [place] [facility] Diastolic blood 2021-04-08 16:02:00 75 mm[Hg] Unive rsity of pressure [place] [facility] Heart rate 2021-04-08 16:02:00 80 /min [facility] [place] [facility] Body temperature 2021-04-08 16:02:00 36.44 Stephanie [facility] [place] [facility] Respiratory rate 2021-04-08 16:02:00 18 /min [facility] [place] [facility] Body height 2021-04-08 16:02:00 162.6 cm [facility] [place] [facility] Body weight 2021-04-08 16:02:00 83.462 kg [facility] [place] [facility] BMI 2021-04-08 16:02:00 31.58 kg/m2 [facility] [place] [facility] Systolic blood 2021-03-25 16:27:00 119 mm[Hg] Univer sity of pressure [place] [facility] Diastolic blood 2021-03-25 16:27:00 79 mm[Hg] Unive rsity of pressure [place] [facility] Heart rate 2021-03-25 16:27:00 76 /min [facility] [place] [facility] Body temperature 2021-03-25 16:27:00 36.89 Stephanie [facility] [place] [facility] Respiratory rate 2021-03-25 16:27:00 18 /min [facility] [place] [facility] Body height 2021-03-25 16:27:00 162.6 cm [facility] [place] [facility] Body weight 2021-03-25 16:27:00 81.647 kg [facility] [place] [facility] BMI 2021-03-25 16:27:00 30.90 kg/m2 [facility] [place] [facility] Body weight 2020 01:00:00 80.287 kg [facility] [place] [facility] Systolic blood 2020-02-25 22:43:00 140 mm[Hg] Univer sity of pressure [place] [facility] Diastolic blood 2020-02-25 22:43:00 86 mm[Hg] Unive rsity of pressure [place] [facility] Heart rate 2020-02-25 22:43:00 90 /min [facility] [place] [facility] Body temperature 2020-02-25 22:43:00 36.94 Stephanie [facility] [place] [facility] Respiratory rate 2020-02-25 22:43:00 18 /min Univ [facility] [place] [facility] Oxygen saturation in 2020-02-25 22:43:00 100 /min University of Arterial blood by [facility] Pulse oximetry Branch Body weight 2020 01:00:00 80.287 kg [facility] [place] [facility] Systolic blood 2020-02-25 22:43:00 140 mm[Hg] Univer sity of pressure [place] [facility] Diastolic blood 2020-02-25 22:43:00 86 mm[Hg] Unive rsity of pressure [place] [facility] Heart rate 2020-02-25 22:43:00 90 /min [facility] [place] [facility] Body temperature 2020-02-25 22:43:00 36.94 Stephanie [facility] [place] [facility] Respiratory rate 2020-02-25 22:43:00 18 /min Univ [facility] [place] [facility] Oxygen saturation in 2020-02-25 22:43:00 100 /min University of Arterial blood by [facility] Pulse oximetry Branch Systolic blood 2019-10-04 18:04:00 146 mm[Hg] Univer sity of pressure [place] [facility] Diastolic blood 2019-10-04 18:04:00 96 mm[Hg] Unive rsity of pressure [place] [facility] Heart rate 2019-10-04 18:04:00 89 /min [facility] [place] [facility] Body temperature 2019-10-04 18:04:00 37.33 Stephanie [facility] [place] [facility] Respiratory rate 2019-10-04 18:04:00 18 /min [facility] [place] [facility] Body weight 2019-10-04 18:04:00 80.241 kg [facility] [place] [facility] Oxygen saturation in 2019-10-04 18:04:00 100 /min University of Arterial blood by [facility] Pulse oximetry Branch Systolic blood 2019-10-04 18:04:00 146 mm[Hg] Univer sity of pressure [place] [facility] Diastolic blood 2019-10-04 18:04:00 96 mm[Hg] Unive rsity of pressure [facility] Heart rate 2019-10-04 18:04:00 89 /min [facility] Body temperature 2019-10-04 18:04:00 37.33 Stephanie [facility] Respiratory rate 2019-10-04 18:04:00 18 /min [facility] Body weight 2019-10-04 18:04:00 80.241 kg [facility] Oxygen saturation in 2019-10-04 18:04:00 100 /min [facility] Arterial blood by [facility] Pulse oximetry Branch Systolic blood 2023-03-11 15:52:00 132 mm[Hg] Method [facility] pressure Diastolic blood 2023-03-11 15:52:00 79 mm[Hg] [facility] pressure Heart rate 2023-03-11 15:52:00 86 /min [facility] Body height 2023-03-11 15:52:[address] [facility] Body weight 2023-03-11 15:52:[address] [facility] BMI 2023-03-11 15:52:00 31.12 kg/m2 [facility] Procedures Procedure Date / Time Performing Clinician Source Performed US BREAST COMPLETE 2023-03-14 19:21:56 Stephani Novak [facility] BILATERAL TSH WITH REFLEX TO FREE 2023-03-11 16:36:00 Kellie Fletcher [facility] T4 Tamiko VITAMIN D 25 HYDROXY 2023-03-11 16:36:00 Kellie Fletcher [facility] LEVEL Tamiko PAP W/AGE BASED 2022-11-16 16:06:00 Stephani Novak [facility] SCREENING PLUS CT/NG POCT MOLECULAR STREP 2022-03-05 16:16:00 Jian Alexis [facility] CONSENT FOR 2021-04-08 05:01:00 Doctor Unassigned, No [facility] CONTRACEPTION Name [facility] POCT TEST 2021-04-08 00:00:00 Antoinette Martínez [facility] XR CHEST 1 VW COVID 2020 01:18:54 Yonatan Dunn [facility] POCT TEST 2020 01:11:00 Yonatan Dunn [facility] CONSENT/REFUSAL FOR 2020-02-25 22:25:29 Doctor Unassigned, No [facility] [place] DIAGNOSIS AND TREATMENT Name [facility] NOTICE OF PRIVACY 2019-10-04 17:48:16 Doctor Unassigned, No Univ ersity [facility] PRACTICES Name [facility] Branch CONSENT/REFUSAL FOR 2019-10-04 17:48:03 Doctor Unassigned, No [facility] [place] DIAGNOSIS AND TREATMENT Name [facility] Plan of Care Planned Activity Planned Date Details Comments Source Future Scheduled 2023-05-16 COVID-19 VACCINE (#1) [facility] Test 13:59:21 [code = COVID-19 VACCINE (#1)] Future Scheduled 2023-05-16 Hepatitis C screening [facility] Test 13:59:21 (procedure) [code = 259689119] Future Scheduled 2023-05-16 INFLUENZA VACCINE [facility] Test 13:59:21 (#1) [code = INFLUENZA VACCINE (#1)] Future Scheduled 2023-05-16 [facility] Test 13:59:21 Chlamydia trachomatis (procedure) [code = 859733669] Future Scheduled 2023-05-16 [facility] Test 13:59:21 malignant neoplasm of cervix (procedure) [code = 150159034] Encounters Start End Encounter Admission Attending Care Care Encounter Source Date/Time Date/Time Type Type Clinicians Facility Department ID 2023-03-21 2023-03-21 [facility] 1.2.840.1 [id number] Methodi 11:03:54 23:59:00 Encounter Stephani 34556.1.[address] [place] 3.430.2.7 Hospit a .3.951716 l .8 2023-03-21 2023-03-21 [facility] [id number] [place] 00:00:00 00:00:00 STEPHANI [address] 2023-03-21 2023-03-21 [place] [id number] Methodi 00:00:00 00:00:00 Only Stephani 09833.1.[address] [place] 3.430.2.7 Hospit a .3.771271 l .8 2023-03-14 2023-03-14 Hospital Stephani Novak 1.2.840.1 1 [id number] Methodi 13:53:36 23:59:00 Encounter Tyler Rai 21919.1.[address] 3.430.2.7 Hospit a .3.437160 l .8 2023-03-14 2023-03-14 Outpatient FREDI [facility] [id number] [place] 00:00:00 00:00:00 TYLER [address] 2023-03-11 2023-03-11 Office Chance, 1.2.840.1 [id number] Methodi 10:15:00 11:35:05 Visit Kellie 92679.1.[address] [place] 3.430.2.7 Hospit a .3.715442 l .8 2023-03-11 2023-03-11 Outpatient [facility] [id number] [place] 00:00:00 00:00:00 KELLIE [address] 2022-11-16 2022-11-16 Office Kellie Fletcher 1.2.840.1 [id number] Methodi 10:30:00 11:12:17 Visit Stephani Novak 40832.1.[address] 3.430.2.7 Hospit a .3.071756 l .8 2022-11-16 2022-11-16 Travel 1.2.840.1 1.2.024.666 [id number] Methodi 00:00:00 00:00:[address] 3.430.2.7 0.2.7.3.698 Ho spita .3.599278 084.8 l .8 2022-11-16 2022-11-16 Outpatient [facility] [id number] [place] 00:00:00 00:00:00 KELLIE [address] 2022-06-14 2022-06-14 Travel 1.2.840.1 1.2.127.314 [id number] Methodi 00:00:00 00:00:[address] 3.430.2.7 0.2.7.3.698 Ho spita .3.572366 084.8 l .8 2022-03-05 2022-03-05 [facility] 1.2.840.114 [id number] Univers 11:00:00 11:20:00 Care Located within [facility] [id number] it y [facility] 4.2.7.2.686 Art as SACHA?BLEA [phone] [address] MEDICAL OFFICE BUILDING 2022-03-05 2022-03-05 [facility] [id number] Univers 11:00:00 11:00:00 [facility] 2021-07-03 2021-07-03 Outpatient R [facility] [id number] Univers 14:30:00 14:30:00 [facility] 2021-05-12 2021-05-12 [facility] 1.2.137.528 [id number] Univers 00:00:00 00:00:00 Secure Msg Antoinette AMONATE 350.1.13.10 ity [facility] 4.2.7.2.686 [place] PROF[place] [phone] [place] [address] Branch BUILDING 2021-04-16 2021-04-16 Outpatient R ALMA DELIA SOTO [facility] [id number] Univers 09:30:00 09:59:10 ity [facility] [place] [facility] 2021-04-16 2021-04-16 Office Antoinette Martínez [facility] 1.2.840.11 [id number] Univers 09:25:28 09:59:10 Visit Alma Delia Soto 350.1.13.10 ity [facility] 4.2.7.2.686 [place] Profess[place] [phone] Ga dical [address] 2021-04-14 2021-04-14 Patient Tanya [facility] 1.2.318.007 [id number] Univers 00:00:00 00:00:00 Secure Msg Antoinette DEBBIE 350.1.13.10 ity of [place] 4.2.7.2.686 [place] PROFESSIO [phone] Ga dic[address] 2021-04-08 2021-04-08 Nurse Nurse, [facility] 1.2.840.114 [id number] Univers 10:37:38 11:11:49 Visit Antoinette Martínez 350.1.13.10 ity of [place] 4.2.7.2.686 [place] Profess[place] [phone] Ga dical [address] 2021-04-08 2021-04-08 Outpatient R [facility] [id number] Univers 10:30:00 10:30:00 ity of [facility] 2021-04-08 2021-04-08 Orders Doctor BARBARA 1.2.840.114 [id number] Univers 00:00:00 00:00:00 Only Unassigned, JESS 350.1.13.10 ity of [place] [facility] 4.2.7.2.686 Art as [phone] [address] 2021-04-07 2021-04-07 Outpatient R TANYA [facility] [id number] Univers 00:00:00 00:00:00 ANTOINETTE salguero [facility] [place] [facility] 2021-03-25 2021-03-25 Office Tanya [facility] 1.2.733.070 [id number] Univers 10:50:28 11:20:28 Visit Antoinette [place] 350.1.13.10 i ty of [place] 4[place]2.7.2.686 [place] Profess[place] [phone] Ga dic[address] 2021-03-25 2021-03-25 [facility] [id number] Univers 10:45:00 10:45:00 ANTOINETTE salguero [facility] [place] [facility] 2021-03-24 2021-03-24 Outpatient R TANYA [facility] [id number] Univers 15:00:00 15:00:00 ANTOINETTE marito [facility] [place] [facility] 2021-03-06 2021-03-06 Outpatient R TANYA [facility] [id number] Univers 08:00:00 08:00:00 ANTOINETTE marito [facility] [place] [facility] 2021-03-05 2021-03-05 Outpatient R TANYA [facility] [id number] Univers 08:30:00 08:30:00 ANTOINETTE marito [facility] 2020-03-27 2020-03-27 Outpatient R JADE, [facility] [id number] Univers 13:15:00 13:15:00 MIKE marito [facility] 2020-03-05 2020-03-05 Outpatient R BRITTANY ALMA DELIA [facility] [id number] Univers 09:45:00 09:45:00 [facility] 2020-03-05 2020-03-05 Telemedici Brittany [facility] 1..840.114 [id number] 08:20:04 08:35:04 ne Visit Cam [place] [id number] [place] 4.2.7.2.686 Professio [phone] [address] 2020-03-05 2020-03-05 Telemedici Alma Delia Soto [facility] 1.2.840.114 [id number] Univers 08:20:04 08:35:04 ne Visit Cam [place] [id number] ity of [place] 4.2.7.2.[place] Profess[place] [phone] Ga dical [address] 2020-02-27 2020-02-27 Outpatient R [facility] [id number] Univers 13:00:00 13:00:00 [facility] 2020-02-27 2020-02-27 Telephone Lab, [facility] 1..840.114 [id number] 00:00:00 00:00:00 Fam Pob I Health [id number] [place] 4.2.7.2.686 Professio [phone] [place] [address] [address] 2020-02-27 2020-02-27 Telephone Lab, [facility] 1.2.840.114 [id number] Univers 00:00:00 00:00:00 Fam Pob I Health [id number] ity of [place] 4.2.7.2.686 Art as Professio [phone] Ga dical nal [address] [place] [address] [facility] One 2020-02-25 2020-02-25 Emergency Patricia Rosales [facility] 1.2.840. 114 [id number] 18:17:09 21:33:00 Yonatan Dunn [place] 350.1.13.10 [place] 4.2.7.2.686 [place] [phone] [facility] 2020-02-25 2020-02-25 Emergency X KATELIN [facility] ERT [id number] Univers 18:17:09 21:33:00 YONATAN ity [facility] 2020-02-25 2020-02-25 Emergency Patricia Rosales [facility] 1.2.840. 114 [id number] Univers 18:17:09 21:33:00 Yonatan Dunn [place] [id number] ity of [place] 4.2.7.2.686 [place] [phone] [facility] [address] [place] 2019-12-03 2019-12-03 Telemedici Brittany [facility] 1.2.840.114 [id number] 08:16:16 08:46:16 ne Visit Cam [place] [id number] [place] 4.2.7.2.686 Professio [phone] [address] 2019-12-03 2019-12-03 Telemedici Brittany [facility] 1.2.840.114 [id number] Univers 08:16:16 08:46:16 ne Visit Cam [place] [id number] ity of [place] 4.2.7.2.686 [place] Profess[place] [phone] Ga dical nal 134 [facility] 2019-12-03 2019-12-03 Outpatient R BRITTANY ALMA DELIA [facility] [id number] Univers 08:30:00 08:30:00 ity of [facility] 2019-10-04 2019-10-04 Emergency Jaswant [facility] 1.2.840.114 [id number] 12:12:38 14:29:00 Todd [place] 350.1.13.10 [place] 4.2.7.2.686 [place] [phone] [facility] 2019-10-04 2019-10-04 Emergency Jaswant [facility] 1.2.840.114 [id number] [facility] 12:12:38 14:29:00 Todd [place] 350.1.13.10 ity of [place] 4.2.7.2.686 [facility] [phone] [facility] [address] [place] 2019-10-04 2019-10-04 Orders Doctor JIMENEZ 1.2.840.114 [id number] Univers 00:00:00 00:00:00 Only Unassigned, JESS 350.1.13.10 ity of [place] [facility] 4.2.7.2.686 [facility] [phone] [address] 2019-10-04 2019-10-04 Orders Doctor JIMENEZ 1.2.840.114 [id number] 00:00:00 00:00:00 Only Unassigned, JESS 350.1.13.10 [place] [facility] 4.2.7.2.686 [phone] [id number] Results Test Description Test Time Test Comments Results Result Comments Source Vitamin D 25 hydroxy level 2023-03-12 09:28:00 Test Item Value Reference Range Interpretation Comme nts Vitamin D, 26 ng/mL 30-100 L Vitamin D Statu s 25-OH Vitamin D: Deficiency: <20 25-hydroxy ng/mLInsufficie ncy: 20 - 29 ng/mLOptimal: > or = (test code = 30 ng/mL For 25 -OH Vitamin D testing on patients 1988-) on D2-supplemen tation and patients for whom quantitation of D2 and D3 fractions is required, the Sharematic D(TM)25-OH VIT D, (D2,D3), LC/MS/MS is rec ommended: order code 29947 (patients >2yrs ).See Note 1 Note 1 For additional information, pl ease refer to http://educatio n.[employer].com/faq/BKU093 (This link is b eing provided for informational/e ducational purposes only.) RAC (test code Performing = RAC) Organization Information: Site ID: [id number] Name: [facility] Address: [address] [place] [phone] Director: Francesco Angel Lab Abnormal Interpretation (test code = 98894-6) [facility] with reflex to free [id number] 09:28:00 Test Item Value Reference Range Interpretation Comments TSH (test code 1.42 mIU/L Reference Ra nge > = 3016-3) or = 20 Years 0.40-4.50 Range s First trimester 0.26-2.66 Secon d trimester 0.55-2.73 Third trimester 0.43-2.91 RAC (test code Performing = RAC) Organization Information: Site ID: [id number] Name: [facility] Address: [address] [place] [phone] Director: Francesco Angel [facility] W/AGE BASED SCREENING PLUS [id number] 17:35:00 Test Item Value Reference Interpretation Comments Range Comment (test code = This or finn for 8251-1) age-based cervi elli cancer and STI screening follo ws ACOG guidelines (PB 168, 140,WEX764 ). See individual assays for performing site location. Clinical information None gi florinda (test code = 93235-6) Date of last 10.28.2022 menstrual period (test code = 8665-2) Prev. pap: (test code NONE G IVEN = 13405-7) Prev. bx: (test code NONE GI FLORINDA = 67917-8) Source (test code = Endocerv ix ) Statement of adequacy Satisf actory for (test code = 16576-7) evalua tion.Endocervi elli/transformat ion zone componentpresen t. Interpretation/result Negati ve for : (test code = intraepitheli al 21186-8) lesion or malignancy. Comment (test code = This Pa p test has ) been evaluated with computerassiste d technology. Line Mover LRW, CT(ASC P) CT (test code = 46772-5) screen ing location: [employer] [address] [place] [address], [place],[phone] Comment (test code = BILLA MERA NOTE: 9376502) The Pap is a screening test for cervical cancer . It is not a diagno stic test and is sub ject to false negati ve and false posit nahun results. It is most reliable when a satisfactory sa mple, regularly obtai le, is submitted wi th relevant clinic al findings and history, and wh en the Pap result is evaluated along with historic and cu rrent clinical information. Chlamydia NOT DETECTED NOT DETECTED trachomatis, TMA result (test code = 92755-6) Neisseria NOT DETECTED NOT DETECTED gonorrhoeae, TMA result (test code = 23014-4) (Always message) The analyti elli (test code = 2647) performan ce characteristics of thisassay, when used to test SurePat h(TM) specimens have beendetermined by Herrenschmiedeti cs. The modificatio ns havenot been cl eared or approved by the FDA. This assay hasbeen validat ed pursuant to the CLIA regulations and isused for clin ical purposes. For additional information, pl ease refer tohttps://educa tion. [employer] /faq/DLR770([facility] s link is being provided for information/edu catio nal purposes on ly.) VALDEMAR (test code = RAC) Performing Organization Information: Site ID: [id number] Name: [facility] Address: [address] [place] [address], [place] [address] Director: Dr. Kalyan Campos [facility] MOLECULAR [id number] 16:23:44 Test Item Value Reference Range Interpretation Comments POCT Molecular Strep (test code = Negative Negative 38265-5) Lab Interpretation (test code = Normal 87233-1) [facility] [id number] 16:15:00 Test Item Value Reference Range Interpretation Comments POCT PREG (test code = 1605) Negative On board controls acceptable with C Yes Line (test code = 3574) POCT PREG LOT # (test code = 3575) POCT PREG TEST DATE (test code = 3576) [facility] [id number] 01:11:00 Test Item Value Reference Range Interpretation Comments POCT PREG (test code = 1605) Negative On board controls acceptable with Present C Line (test code = 3574) POCT PREG LOT # (test code = 3575) [id number] POCT PREG TEST DATE (test 06/04/2021 code = 3576) Lab Interpretation (test code = Normal 96622-2) [facility]
[2023-06-08 18:48] LABS: Hematocrit 38.9 % (36.0-45.0); Lymphocytes % 31.2 % (15.3-44.8); MPV 8.6 fL (7.6-11.3); Platelets 254 thou/uL (152-406); RBC Red Blood Cell Count 4.69 M/uL (3.86-4.86)
[2023-06-08 18:50] LABS: Specific Gravity 1.027 (1.005-1.030)
--- NOTE | 2023-06-08 18:50 | RAD REPORT ---
EXAM DESCRIPTION: Valery Single View06/08/2023 6:38 pm CLINICAL HISTORY: Chest pain COMPARISON: 2021 FINDINGS: The lungs appear clear of acute infiltrate. The heart is normal size IMPRESSION: No acute abnormalities displayed
[2023-06-08 18:51] LABS: Specific Gravity 1.027 (1.005-1.030); Urine Bilirubin NEGATIVE (Negative); Urine Blood Negative (Negative); Urine Clarity Clear (Clear); Urine Color Light-Yellow (Yellow); Urine Glucose NEGATIVE (Negative); Urine Protein NEGATIVE (Negative); Urine Urobilinogen Normal (Normal); Urine pH 6.5 (5.0-7.0)
[2023-06-08 19:07] LABS: ALT/SGPT 28 U/L (13-56); AST/SGOT 14 U/L (15-37); Albumin 3.7 g/dL (3.4-5.0); Alkaline Phosphatase 60 U/L (45-117); BUN Blood Urea Nitrogen 13 mg/dL (7-18); Bicarbonate 25 mEq/L (21-32); Bilirubin Total 0.3 mg/dL (0.2-1.0); Glomerular Filtration Rate 106 ml/min (=/>90); Glucose Level 96 mg/dL (74-106); Lipase 52 U/L (13-75); Magnesium 2.2 mg/dL (1.6-2.4); NT PRO-BNP 61 pg/mL (<125); Potassium 3.7 mEq/L (3.5-5.1); Protein, Total 7.4 g/dL (6.4-8.2); Sodium Level 139 mEq/L (136-145); Troponin High Sensitivity 4.7 pg/mL (<58.9)
[2023-06-08 19:18] LABS: Barbiturates NEGATIVE (NEGATIVE); Benzodiazepines NEGATIVE (NEGATIVE); Cocaine NEGATIVE (NEGATIVE); METHAMPHETAM NEGATIVE (NEGATIVE); Opiates NEGATIVE (NEGATIVE); Phencyclidine NEGATIVE (NEGATIVE); THC Cannibis NEGATIVE (NEGATIVE)
[2023-06-08 19:25] LABS: Bilirubin Direct < 0.1 mg/dL (0-0.2); Bilirubin Indirect, Calculated ND mg/dL (0.2-0.8)
[2023-06-08] MEDS ORDERED: ASPIRIN 81 MG CHEWABLE TABLET ONE (19:25)
[2023-06-08 19:26] LABS: Methadone ND (NEGATIVE)
--- NOTE | 2023-06-08 20:10 | RAD REPORT ---
EXAM DESCRIPTION: CT - Angio Aorta For Dissection - 06/08/2023 7:40 pm CLINICAL HISTORY: . Chest and abd pain COMPARISON: None TECHNIQUE: Computed tomography angiography of the chest, abdomen pelvis were obtained. 100 cc Isovue 370 was administered intravenously. Coronal and sagittal reconstruction were performed. MIP 3D reconstruction was performed All CT scans are performed using dose optimization technique as appropriate and may include automated exposure control or mA/KV adjustment according to patient size. FINDINGS: An aortic dissection is not seen. An aortic aneurysm is not displayed. A pulmonary embolism is not visualized The celiac, SMA and RUSLAN are patent . A lung consolidation is not present. A pericardial effusion is not seen. A pleural effusion is not no sagrario. The liver,spleen, pancreas,adrenals and kidneys demonstrate no significant abnormality. There no evidence diverticulitis. Normal appendix 3.9 centimeter left ovarian cyst without significant fluid IMPRESSION: Negative for an aortic dissection. 3.9 centimeter simple appearing left ovarian cyst without significant fluid. No follow-up imaging rec ommended
--- NOTE | 2023-06-08 20:26 | ER ---
Nurse's Notes [facility] Name: Jessica Resendez Age: 23 yrs Sex: Female : 2000 Arrival Date: 06/08/2023 Time: 18:03 Bed 12 Private MD: Diagnosis: Chest pain, unspecified;Unspecified symptoms and signs involving the musculoskeletal system Presentation: 06/08 18:07 Chief complaint: Patient states: intermittent chest pain that began yesterday. aa5 Coronavirus screen: At this time, the client does not indicate any symptoms associated with coronavirus-19. Ebola Screen: Patient denies travel to an Ebola-affected area in the 21 days before illness onset. Initial Sepsis Screen: Does the patient meet any 2 criteria? HR > 90 bpm. Does the patient have a suspected source of infection? No. Patient's initial sepsis screen is negative. Risk Assessment: Do you want to hurt yourself or someone else? Patient reports no desire to harm self or others. Onset of symptoms was June 2023. 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 - Social history:: Smoking status: Patient denies any tobacco usage or history of. Screenin:45 [facility] ED Fall Risk Assessment (Adult) History of falling in the last 3 months, mb9 including since admission No falls in past 3 months (0 pts) Confusion or Disorientation No (0 pts) Intoxicated or Sedated No (0 pts) Impaired Gait No (0 pts) Mobility Assist Device Used No (0 pt) Altered Elimination No (0 pt) Score/Fall Risk Level 0 - 2 = Low Risk Oriented to surroundings, Maintained a safe environment, Educated pt \T\ family on fall prevention, incl call for assistance when getting out of bed. Abuse screen: Denies threats or abuse. Nutritional screening: No deficits noted. Tuberculosis screening: No symptoms or risk factors identified. Assessment: 18:43 General: Appears uncomfortable, Behavior is calm, cooperative. Pain: Complains of pain mb9 in chest Pain does not radiate. Pain currently is 6 out of 10 on a pain scale. Quality of pain is described as throbbing, Pain began suddenly, Is intermittent. Neuro: Wolf Agitation-Sedation Scale (RASS): 0 - Alert and Calm Level of Consciousness is awake, alert, obeys commands, Oriented to person, place, time, situation, Appropriate for age. Cardiovascular: Reports chest pain, shortness of breath, Heart tones S1 S2 present Patient's skin is warm and dry. Respiratory: Reports shortness of breath Airway is patent Respiratory effort is even, unlabored, Respiratory pattern is regular, symmetrical, Breath sounds are clear bilaterally. GI: Abdomen is flat, non-distended, Bowel sounds present X 4 quads. Abd is soft and non tender X 4 quads. Patient currently denies nausea, vomiting. : No signs and/or symptoms were reported regarding the genitourinary system. EENT: No signs and/or symptoms were reported regarding the EENT system. Derm: Skin is pink, warm \T\ dry. Musculoskeletal: Range of motion: intact in all extremities. 19:34 Reassessment: pt taken to CT via stretcher. mb9 20:36 Reassessment: No changes from previously documented assessment. Patient and/or family mb9 updated on plan of care and expected duration. Pain level reassessed. Patient is alert, oriented x 3, equal unlabored respirations, skin warm/dry/pink. Vital Signs: 18:07 BP 151 / 92; Pulse 95; Resp 16 S; Temp 98.6(TE); Pulse Ox 100% on R/A; Weight 81.65 kg aa5 (R); Height 5 ft. 4 in. (R); 18:53 BP 121 / 79; Pulse 80; Resp 15; Pulse Ox 98% on R/A; mb9 20:36 BP 118 / 76; Pulse 78; Resp 18; Pulse Ox 100% on R/A; mb9 18:07 Body Mass Index 30.90 (81.65 kg, 162.56 cm) aa5 ED Course: 18:07 Patient arrived in ED. aa5 18:07 Arm band placed on. aa5 18:08 Triage completed. aa5 18:11 Jc Ragland MD is Attending Physician. [facility] 18:24 Radha Crandall, RN is Primary Nurse. mb9 18:25 Inserted saline lock: 22 gauge in right antecubital area, using aseptic technique. mb9 18:40 XRAY Chest (1 view) In Process Unspecified. EDMS 18:43 UDS Sent. mb9 18:43 PREGU Sent. mb9 18:43 Urinalysis w/ reflexes Sent. mb9 18:43 D-Dimer Sent. mb9 18:43 Lipase Sent. mb9 18:43 Basic Metabolic Panel Sent. mb9 18:43 CBC with Diff Sent. mb9 18:43 LFT's Sent. mb9 18:43 Magnesium Sent. mb9 18:43 NT PRO-BNP Sent. mb9 18:43 Troponin HS Sent. mb9 18:45 Placed in gown. Bed in low position. Call light in reach. Side rails up X 1. Client mb9 placed on continuous cardiac and pulse oximetry monitoring. NIBP monitoring applied. nurse monitoring on. Door closed. Noise minimized. Warm blanket given. 18:45 Assist provider with bone marrow aspiration. Patient maintains SpO2 saturation greater mb9 than 95% on room air. 19:42 CT Aorta for Dissection In Process Unspecified. EDMS 20:25 Domingo Sage MD is Referral Physician. daniel 20:36 IV discontinued, intact, bleeding controlled, No redness/swelling at site. Pressure mb9 dressing applied. Administered Medications: 19:13 Drug: Aspirin PO Chewable Tablet 81 mg PO once Route: PO; mb9 19:37 Follow up: Response: No adverse reaction mb9 Medication: 18:45 VIS not applicable for this client. mb9 Outcome: 20:25 Discharge ordered by . daniel 20:36 Discharged to home ambulatory, with family, mb9 20:36 Condition: stable 20:36 Discharge instructions given to patient, family, Instructed on discharge instructions, follow up and referral plans. Demonstrated understanding of instructions, follow-up care, medications, Prescriptions given X 2, 20:37 Patient left the ED. mb9 Signatures: Dispatcher [employer] Jc Mullen MD MD cha Calderon, Audri, RN RN aa5 Radha Crandall, RN RN mb9
--- NOTE | 2023-06-08 20:26 | EDPHYS ---
Physician Documentation [facility] Name: Jessica Resendez Age: 23 yrs Sex: Female : 2000 Arrival Date: 06/08/2023 Time: 18:03 Bed 12 Private MD: ED Physician Jc Ragland HPI: 06/08 19:10 This 23 yrs old Female presents to ER via Ambulatory with complaints of Chest daniel Pain. 19:10 The patient or guardian reports chest pain that is located primarily in the substernal daniel area. The pain does not radiate. Associated signs and symptoms: Pertinent positives: palpitations. The chest pain is described as aching. Duration: The patient or guardian reports multiple episodes, with no pattern. Modifying factors: The symptoms are alleviated by nothing. the symptoms are aggravated by nothing. Severity of pain: At its worst the pain was mild in the emergency department the pain is unchanged. The patient has not experienced similar symptoms in the past. 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 - Social history:: Smoking status: Patient denies any tobacco usage or history of. ROS: 19:13 Constitutional: Negative for fever, chills, and weight loss, Eyes: Negative for injury, daniel pain, redness, and discharge, ENT: Negative for injury, pain, and discharge, Neck: Negative for injury, pain, and swelling, Respiratory: Negative for shortness of breath, cough, wheezing, and pleuritic chest pain, Abdomen/GI: Negative for abdominal pain, nausea, vomiting, diarrhea, and constipation, Back: Negative for injury and pain, : Negative for injury, bleeding, discharge, and swelling, MS/Extremity: Negative for injury and deformity, Skin: Negative for injury, rash, and discoloration, Neuro: Negative for headache, weakness, numbness, tingling, and seizure, Psych: Negative for depression, anxiety, suicide ideation, homicidal ideation, and hallucinations, Allergy/Immunology: Negative for hives, rash, and allergies, Endocrine: Negative for neck swelling, polydipsia, polyuria, polyphagia, and marked weight changes, Hematologic/Lymphatic: Negative for swollen nodes, abnormal bleeding, and unusual bruising, 19:13 Cardiovascular: Positive for chest pain, Exam: 19:13 Constitutional: This is a well developed, well nourished patient who is awake, alert, daniel and in no acute distress. Head/Face: Normocephalic, atraumatic. Eyes: Pupils equal round and reactive to light, extra-ocular motions intact. Lids and lashes normal. Conjunctiva and sclera are non-icteric and not injected. Cornea within normal limits. Periorbital areas with no swelling, redness, or edema. ENT: Nares patent. No nasal discharge, no septal abnormalities noted. Tympanic membranes are normal and external auditory canals are clear. Oropharynx with no redness, swelling, or masses, exudates, or evidence of obstruction, uvula midline. Mucous membranes moist. Neck: Trachea midline, no thyromegaly or masses palpated, and no cervical lymphadenopathy. Supple, full range of motion without nuchal rigidity, or vertebral point tenderness. No Meningismus. Chest/axilla: Normal chest wall appearance and motion. Nontender with no deformity. No lesions are appreciated. Cardiovascular: Regular rate and rhythm with a normal S1 and S2. No gallops, murmurs, or rubs. Normal PMI, no JVD. No pulse deficits. Respiratory: Lungs have equal breath sounds bilaterally, clear to auscultation and percussion. No rales, rhonchi or wheezes noted. No increased work of breathing, no retractions or nasal flaring. Abdomen/GI: Soft, non-tender, with normal bowel sounds. No distension or tympany. No guarding or rebound. No evidence of tenderness throughout. Back: No spinal tenderness. No costovertebral tenderness. Full range of motion. Skin: Warm, dry with normal turgor. Normal color with no rashes, no lesions, and no evidence of cellulitis. MS/ Extremity: Pulses equal, no cyanosis. Neurovascular intact. Full, normal range of motion. Neuro: Awake and alert, GCS 15, oriented to person, place, time, and situation. Cranial nerves II-XII grossly intact. Motor strength 5/5 in all extremities. Sensory grossly intact. Cerebellar exam normal. Normal gait. Psych: Awake, alert, with orientation to person, place and time. Behavior, mood, and affect are within normal limits. 19:17 Musculoskeletal/extremity: DVT Exam: No signs of deep vein thrombosis. no pain, no daniel swelling, no tenderness, negative Homans' sign noted on exam, no appreciated bluish discoloration, no erythema, no increased warmth, 19:20 ECG was reviewed by the Attending Physician. [facility] Vital Signs: 18:07 BP 151 / 92; Pulse 95; Resp 16 S; Temp 98.6(TE); Pulse Ox 100% on R/A; Weight 81.65 kg aa5 (R); Height 5 ft. 4 in. (R); 18:53 BP 121 / 79; Pulse 80; Resp 15; Pulse Ox 98% on R/A; mb9 20:36 BP 118 / 76; Pulse 78; Resp 18; Pulse Ox 100% on R/A; mb9 18:07 Body Mass Index 30.90 (81.65 kg, 162.56 cm) aa5 MDM: 18:11 Patient medically screened. daniel 19:14 Differential diagnosis: abnormal EKG, acute myocardial infarction, acute pericarditis, daniel anxiety, coronary artery disease chest wall pain, congestive heart failure costochondritis, esophagitis, gastritis, pancreatitis, peptic ulcer disease, pleurisy, pneumonia, pulmonary embolus, stable angina, thoracic aortic disection, unstable angina. HEART Score: History: Slightly Suspicious (0), ECG: Normal (0), Age: < or = 45 years (0), Risk Factors: No Risk Factors Known (0), Troponin: < or = 1 x Normal Limit (0), Total Score = 0. DU Risk Score: not applicable. Data reviewed: vital signs, nurses notes, lab test result(s), EKG, radiologic studies, CT scan, plain films. Consideration of Admission/Observation Escalation of care including admission/observation considered. I considered the following discharge prescriptions or medication management in the emergency department Medications were administered in the Emergency Department. See MAR. Independent interpretation of the following test(s) in the Emergency Department EKG: See my EKG interpretation above. Test considered but Not performed: Ultrasound no 2 d echo. Historians other than the Patient: Family Member: and mom in law. Care significantly affected by the following chronic conditions: headache. 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 06/08 18:24 Order name: Basic Metabolic Panel; Complete Time: 19:57 [facility] 06/08 18:24 Order name: CBC with Diff; Complete Time: 19:10 [facility] 06/08 18:24 Order name: LFT's; Complete Time: 19:57 [facility] 06/08 18:24 Order name: Magnesium; Complete Time: 19:57 [facility] 06/08 18:24 Order name: NT PRO-BNP; Complete Time: 19:57 [facility] 06/08 18:24 Order name: Troponin HS; Complete Time: 19:57 [facility] 06/08 18:24 Order name: Lipase; Complete Time: 19:57 [facility] 06/08 18:24 Order name: D-Dimer; Complete Time: 19:10 [facility] 06/08 18:24 Order name: Urinalysis w/ reflexes; Complete Time: 19:10 [facility] 06/08 18:24 Order name: PREGU; Complete Time: 19:10 [facility] 06/08 18:24 Order name: UDS; Complete Time: 19:57 [facility] 06/08 18:24 Order name: XRAY Chest (1 view); Complete Time: 19:10 [facility] 06/08 19:22 Order name: CT Aorta for Dissection [facility] 06/08 18:24 Order name: EKG; Complete Time: 18:26 [facility] 06/08 18:15 Order name: EKG - Nurse/Tech; Complete Time: 18:15 [facility] 06/08 18:24 Order name: Cardiac monitoring; Complete Time: 18:43 [facility] 06/08 18:24 Order name: IV Saline Lock; Complete Time: 18:43 [facility] 06/08 18:24 Order name: Labs collected and sent; Complete Time: 18:43 [facility] 06/08 18:24 Order name: O2 Per Protocol; Complete Time: 18:25 [facility] 06/08 18:24 Order name: O2 Sat Monitoring; Complete Time: 18:25 daniel EC:20 Rate is 89 beats/min. Rhythm is regular. QRS [place] is Normal. VT interval is shortened daniel at 110 msec. QRS interval is normal. QT interval is normal. No Q waves. T waves are Normal. No ST changes noted. Clinical impression: NSR w/ Non-specific ST/T Changes and No evidence of ischemia. Interpreted by me. Reviewed by me. Administered Medications: 19:13 Drug: Aspirin PO Chewable Tablet 81 mg PO once Route: PO; mb9 19:37 Follow up: Response: No adverse reaction mb9 Disposition Summary: 06/08/23 20:25 Discharge Ordered Notes: Location: Home daniel Problem: new daniel Symptoms: have improved daniel Condition: Stable daniel Diagnosis - Chest pain, unspecified daniel - Unspecified symptoms and signs involving the musculoskeletal system daniel Followup: daniel - With: Private Physician - When: 2 - 3 days - Reason: Recheck today's complaints, Continuance of care, Re-evaluation by your physician Followup: daniel - With: Domingo Sage MD - When: 2 - 3 days - Reason: Recheck today's complaints, Re-evaluation by your physician Discharge Instructions: - Discharge Summary Sheet daniel - Nonspecific Chest Pain, Adult daniel - Chest Wall Pain daniel - Chest Wall Pain, [id number] daniel - Nonspecific Chest Pain, Adult, [id number] [facility] Forms: - Medication Reconciliation Form [facility] - Thank You Letter [facility] - Antibiotic Education daniel - Prescription Opioid Use daniel - Patient Portal Instructions daniel - Leadership Thank You Letter daniel - Work release form mb9 Prescriptions: - Ibuprofen 600 mg Oral Tablet - take 1 tablet ORAL route every 6 hours As needed take with food; 30 tablet; [facility] Refills: 0, Product Selection Permitted - Pepcid 20 mg Oral tablet - take 1 tablet ORAL route every 12 hours for 21 days; 42 tablet; Refills: 0, [facility] Product Selection Permitted Signatures: Dispatcher [employer] EDMS Jc Ragland MD MD cha Calderon, Audri, RN RN aa5 Radha Crandall RN RN mb9 Corrections: (The following items were deleted from the chart) 18:33 18:24 EKG - Nurse/Tech ordered. daniel correia 19:31 19:11 Angio Aorta For Dissection+CT.RAD.BRZ ordered. EDKS ED
[2023-06-08 21:27] VITALS: TEMP 98.6
[2023-06-08 21:39] VITALS: BP 118/76; O2SAT 100
--- NOTE | 2023-06-09 16:59 | EKG ---
Test Date: 2023-06-08 Test Time: 18:14:54 [employer] Shift Superintendent: WILLIAM MEASUREMENT RESULTS: Intervals: Rate: 89 VT: 110 QRSD: 76 QT: 358 QTc: 435 Henderson: P: 32 VT: 110 QRS: 78 T: 57 INTERPRETIVE STATEMENTS: Sinus rhythm with short VT Otherwise normal ECG No previous ECG available for comparison Electronically Signed On 06-09-23 16:56:23 CDT by Domingo Sage
== END 2023-06-08 20:37 | disposition home or self-care (01) ==
LOC: ER 18:03
DX: R07.9 Chest pain, unspecified (principal); R29.91 Unspecified symptoms and signs involving the musculoskeletal system
CPT/HCPCS: 85025; 80048; 36415; 83735; 81025; 85379; 80076; 81003; 84484; 83690; 83880; 80307; 71275; 74175; 71045; Q9967; 93005; 99285